=== PATIENT | female | born 1990 | race African-American/Black ===

== ENCOUNTER 2017-03-11 15:21 | Emergency (ER) | payer OTHER ==
[~2017-03-11] VITALS: Ht 152.4 cm; Wt 106.6 kg
[~2017-03-11 15:21] MED LIST: ACYCLOVIR 800800 MG PO; BACTRIM DS TAB1 EACH PO; IBUPROFEN 600600 M1 PO; NECON1 EAC1 PO; NORCO 5-325 TA1 EACH PO; PERCOCET 10-321 EACH PO; PROCTOCREAM-HC30 G1 RC; PROTONIX40 M1 PO
[2017-03-11] MEDS ORDERED: BIRTH CONTROL (15:31)
[2017-03-11] MEDS ORDERED: PERCOCET PO (15:32)
[2017-03-11] MEDS ORDERED: ACYCLOVIR 400400 MG PO (15:32)
[2017-03-11 15:51] LABS: URINE BILIRUBIN NEGATIVE (Negative); URINE BLOOD 2+ (Negative); URINE COLOR YELLOW; URINE GLUCOSE-RANDOM* NEGATIVE (Negative); URINE KETONES NEGATIVE (Negative); URINE LEUKOCYTES-REFLEX NEGATIVE (Negative); URINE PROTEIN (DIPSTICK) NEGATIVE (Negative); URINE SPECIFIC GRAVITY 1.015 (1.003-1.035); URINE UROBILINOGEN 0.2 E.U./dl (0.2-1.0)
[2017-03-11 15:59] LABS: SQUAMOUS 0-3 Few /LPF (0-3)
[2017-03-11 16:00] LABS: CASTS None Seen /LPF (None Seen); CRYSTALS None Seen /LPF (None Seen); URINE RBC 3-10 Few /HPF (0-2); URINE WBC-REFLEX None Seen /HPF (0-5)
[2017-03-11 17:04] LABS: HEMATOCRIT 35.9 % (37.0-47.0); HEMOGLOBIN 11.8 gm/dL (12.0-15.0); MCH 26.8 pg (26.0-34.0); MCHC 32.8 g/dL (28.0-37.0); MCV 81.8 fL (80.0-100.0); RBC 4.38 mil/uL (4.20-5.00); RDW 14.3 % (10.5-14.5); WBC 6.6 thou/uL (4.0-11.0)
[2017-03-11] MEDS ORDERED: NAPROSYN500 MG PO (17:23)
[2017-03-11] MEDS ORDERED: HYDROCODONE-AP1 EAC6 PO (17:23)
[2017-03-11 17:29] LABS: CALCIUM 8.8 mg/dL (8.5-10.1); CREATININE 0.7 mg/dL (0.6-1.0)
[2017-03-11] MEDS ORDERED: PHENERGAN 25 MG25 M1 PO (17:36)
[2017-03-11 17:46] VITALS: BP 147/75
== END 2017-03-11 17:48 | disposition home or self-care (01) ==
LOC: ER 15:21
PROVIDERS: Physician Assistant
DX: D25.9 Leiomyoma of uterus, unspecified (principal); F17.210 Nicotine dependence, cigarettes, uncomplicated; F10.99 Alcohol use, unspecified with unspecified alcohol-induced disorder